=== PATIENT | male | born 1950 | race Caucasian/White ===

== ENCOUNTER 2019-02-17 10:58 | Inpatient (IN) | payer MEDICARE, OTHER ==
[2019-02-17 11:56] LABS: ADD MAN DIFF? NO
[2019-02-17 11:58] LABS: WHITE BLOOD COUNT 31.6 10^3/ul (4.8-10.8)
[2019-02-17 11:58] LABS: ABNORMAL IP MESSAGE 1; BASOPHIL # 0.2 10^3/ul (0.0-0.1); BASOPHILS % 0.5 % (0.0-2.0); HEMATOCRIT 51.1 % (42.0-52.0); HEMOGLOBIN 17.1 g/dl (14.0-18.0); LYMPHOCYTES # 0.2 10^3/ul (0.8-2.9); LYMPHOCYTES % 0.6 % (15.0-51.0); MEAN CORPUSCULAR HEMOGLOBIN 30.3 pg (29.0-33.0); MEAN CORPUSCULAR HGB CONC 33.5 g/dl (32.0-37.0); MEAN CORPUSCULAR VOLUME 90.4 fl (82.0-101.0); MEAN PLATELET VOLUME 8.1 fl (7.4-10.4); MONOCYTES % 3.3 % (0.0-11.0); NEUTROPHIL # 29.9 10^3/ul (1.6-7.5); NEUTROPHILS % 94.7 % (39.0-77.0); PLATELET COUNT 223 10^3/UL (140-415); POSITIVE DIFF @See below; RED BLOOD COUNT 5.65 10^6/ul (4.70-6.10); RED CELL DISTRIBUTION WIDTH 13.3 % (11.5-14.5)
[2019-02-17] MEDS: SOD CHLORIDE 0.9% 1,000 ML IV ×2 (12:15→17:40)
[2019-02-17 12:23] LABS: ANION GAP 18 (5-13); BLOOD UREA NITROGEN 45 mg/dl (7-20); CALCIUM 9.5 mg/dl (8.4-10.2); CARBON DIOXIDE 18 mmol/L (21-31); CHLORIDE 106 mmol/L (97-110); CREATININE 2.85 mg/dl (0.61-1.24); Estimated GFR 22 mL/min (>60); GLUCOSE 167 mg/dl (70-220); POTASSIUM 4.2 mmol/L (3.5-5.1); SODIUM 142 mmol/L (135-144)
[2019-02-17] MEDS: CEFEPIME 1GM/50 ML (PMX) 50 ML IVPB (13:24)
[2019-02-17] MEDS: SODIUM CHLORIDE 0.9% 1L BAG IV* (13:25)
[2019-02-17] MEDS ORDERED: ACETAMINOPHEN 325 MG TAB PO ×2 (13:30→17:00)
[2019-02-17] MEDS ORDERED: ONDANSETRON 4 MG INJ IV (13:30)
[2019-02-17 13:42] LABS: ADD UMIC YES; UR ASCORBIC ACID NEGATIVE (NEGATIVE); UR BILIRUBIN (Dip) NEGATIVE (NEGATIVE); UR BLOOD (Dip) 2+ mg/dL (NEGATIVE); UR CLARITY CLOUDY (CLEAR); UR COLOR AMBER (YELLOW); UR GLUCOSE (Dip) 1+ mg/dL (NEGATIVE); UR KETONES (Dip) 1+ mg/dL (NEGATIVE); UR LEUKOCYTE ESTERASE (Dip) NEGATIVE Leu/ul (NEGATIVE); UR NITRITE (Dip) POSITIVE (NEGATIVE); UR TOTAL PROTEIN (Dip) 3+ mg/dl (NEGATIVE); UR UROBILINOGEN (Dip) NEGATIVE (NEGATIVE)
[2019-02-17 13:47] LABS: UR MUCUS MODERATE /HPF (NONE SEEN); UR SQUAMOUS EPITHELIAL CELL FEW /HPF (FEW); URINE RBCS >200 /HPF (0)
[2019-02-17 13:58] LABS: INR 1.11; PROTIME 14.4 Sec (11.9-14.9); PT RATIO 1.1
[2019-02-17 15:35] LABS: CREATINE KINASE 51 IU/L (23-200)
[2019-02-17 15:58] LABS: LACTIC ACID 4.3 mmol/L (0.5-2.0)
[2019-02-17] MEDS ORDERED: traMADol 50 MG TAB PO (17:00)
[2019-02-17 18:22] LABS: LACTIC ACID 2.2 mmol/L (0.5-2.0)
[2019-02-17] MEDS: TAMSULOSIN (SR) 0.4 MG CAP PO (20:13)
[2019-02-17] MEDS: BETHANECHOL 25 MG TAB PO (20:13)
[2019-02-17] MEDS: DOCUSATE SODIUM 100 MG CAP PO (20:13)
[2019-02-17] MEDS: METOPROLOL 25 MG TAB PO (20:14)
[2019-02-17] MEDS: TERAZOSIN 5 MG CAP PO (20:14)
[2019-02-18] MEDS: LEVALBUTEROL (NEB) 0.63 MG/3 ML AMP HHN ×3 (00:39→15:03)
[2019-02-18] MEDS: SOD CHLORIDE 0.9% 1,000 ML IV ×4 (03:00→23:00)
[2019-02-18 05:12] LABS: ADD MAN DIFF? NO
[2019-02-18 05:25] LABS: LACTIC ACID 1.2 mmol/L (0.5-2.0)
[2019-02-18 05:26] LABS: ANION GAP 10 (5-13); BLOOD UREA NITROGEN 50 mg/dl (7-20); CALCIUM 8.1 mg/dl (8.4-10.2); CARBON DIOXIDE 20 mmol/L (21-31); CHLORIDE 111 mmol/L (97-110); CREATININE 2.12 mg/dl (0.61-1.24); Estimated GFR 31 mL/min (>60); GLUCOSE 134 mg/dl (70-220); POTASSIUM 4.5 mmol/L (3.5-5.1); SODIUM 141 mmol/L (135-144)
[2019-02-18 05:46] LABS: ABNORMAL IP MESSAGE 1; BASOPHIL # 0.1 10^3/ul (0.0-0.1); BASOPHILS % 0.3 % (0.0-2.0); EOSINOPHILS # 0.2 10^3/ul (0.0-0.5); EOSINOPHILS % 0.7 % (0.0-7.0); HEMATOCRIT 38.7 % (42.0-52.0); HEMOGLOBIN 12.7 g/dl (14.0-18.0); LYMPHOCYTES # 0.5 10^3/ul (0.8-2.9); LYMPHOCYTES % 2.3 % (15.0-51.0); MEAN CORPUSCULAR HEMOGLOBIN 29.9 pg (29.0-33.0); MEAN CORPUSCULAR HGB CONC 32.8 g/dl (32.0-37.0); MEAN CORPUSCULAR VOLUME 91.1 fl (82.0-101.0); MEAN PLATELET VOLUME 8.8 fl (7.4-10.4); MONOCYTE # 1.1 10^3/ul (0.3-0.9); MONOCYTES % 5.3 % (0.0-11.0); NEUTROPHIL # 19.1 10^3/ul (1.6-7.5); NEUTROPHILS % 89.8 % (39.0-77.0); PLATELET COUNT 158 10^3/UL (140-415); POSITIVE DIFF @See below; RED BLOOD COUNT 4.25 10^6/ul (4.70-6.10); RED CELL DISTRIBUTION WIDTH 13.7 % (11.5-14.5)
[2019-02-18 05:46] LABS: WHITE BLOOD COUNT 21.3 10^3/ul (4.8-10.8)
[2019-02-18] MEDS: METOPROLOL 25 MG TAB PO ×2 (09:00→21:01)
[2019-02-18] MEDS: CEFEPIME 1GM/50 ML (PMX) 50 ML IVPB (12:34)
[2019-02-18] MEDS: GUAIFENESIN/DM 5ML CUP PO ×3 (12:40→23:00)
[2019-02-18] MEDS: TERAZOSIN 5 MG CAP PO (21:01)
[2019-02-18] MEDS: DOCUSATE SODIUM 100 MG CAP PO (21:01)
[2019-02-19] MEDS: SOD CHLORIDE 0.9% 1,000 ML IV ×2 (03:08→13:30)
[2019-02-19] MEDS: GUAIFENESIN/DM 5ML CUP PO ×2 (06:29→10:48)
[2019-02-19] MEDS: METOPROLOL 25 MG TAB PO ×2 (08:50→21:58)
[2019-02-19] MEDS: LEVALBUTEROL (NEB) 0.63 MG/3 ML AMP HHN ×3 (08:56→15:01)
[2019-02-19] MEDS: BISACODYL (EC) 5 MG TAB PO (13:51)
[2019-02-19] MEDS: CEFEPIME 1GM/50 ML (PMX) 50 ML IVPB (13:51)
[2019-02-19] MEDS: HYDROCODONE/HOMATROPINE 5ML CUP PO (15:53)
[2019-02-19 19:07] LABS: ADD UMIC YES; UR ASCORBIC ACID NEGATIVE (NEGATIVE); UR BACTERIA FEW /HPF (NONE SEEN); UR BILIRUBIN (Dip) NEGATIVE (NEGATIVE); UR BLOOD (Dip) 3+ mg/dL (NEGATIVE); UR CLARITY TURBID (CLEAR); UR COLOR YELLOW (YELLOW); UR GLUCOSE (Dip) NEGATIVE (NEGATIVE); UR KETONES (Dip) NEGATIVE (NEGATIVE); UR LEUKOCYTE ESTERASE (Dip) 3+ Leu/ul (NEGATIVE); UR MUCUS FEW /HPF (NONE SEEN); UR NITRITE (Dip) NEGATIVE (NEGATIVE); UR RBC 47 /HPF (0-5); UR SPECIFIC GRAVITY (Dip) 1.012 (1.003-1.030); UR TOTAL PROTEIN (Dip) 1+ mg/dl (NEGATIVE); UR UROBILINOGEN (Dip) NEGATIVE (NEGATIVE); UR WBC > 182 /HPF (0-5)
[2019-02-19 19:19] LABS: SODIUM,URINE RANDOM 140 mmol/L (30-90)
[2019-02-19] MEDS: DOXYCYCLINE 100 MG TAB PO (21:56)
[2019-02-19] MEDS: TERAZOSIN 5 MG CAP PO (21:57)
[2019-02-19] MEDS: DOCUSATE SODIUM 100 MG CAP PO (21:57)
[2019-02-20] MEDS: SOD CHLORIDE 0.9% 1,000 ML IV ×2 (00:12→09:20)
[2019-02-20] MEDS: HYDROCODONE/HOMATROPINE 5ML CUP PO ×3 (00:46→16:24)
[2019-02-20 05:18] LABS: ADD MAN DIFF? NO
[2019-02-20 05:22] LABS: WHITE BLOOD COUNT 7.7 10^3/ul (4.8-10.8)
[2019-02-20 05:22] LABS: BASOPHIL # 0.1 10^3/ul (0.0-0.1); BASOPHILS % 0.6 % (0.0-2.0); EOSINOPHILS # 0.7 10^3/ul (0.0-0.5); EOSINOPHILS % 9.2 % (0.0-7.0); HEMATOCRIT 35.4 % (42.0-52.0); HEMOGLOBIN 11.6 g/dl (14.0-18.0); LYMPHOCYTES # 0.6 10^3/ul (0.8-2.9); MEAN CORPUSCULAR HEMOGLOBIN 30.2 pg (29.0-33.0); MEAN CORPUSCULAR HGB CONC 32.8 g/dl (32.0-37.0); MEAN CORPUSCULAR VOLUME 92.2 fl (82.0-101.0); MEAN PLATELET VOLUME 8.5 fl (7.4-10.4); MONOCYTES % 12.4 % (0.0-11.0); NEUTROPHIL # 5.4 10^3/ul (1.6-7.5); NEUTROPHILS % 69.5 % (39.0-77.0); PLATELET COUNT 177 10^3/UL (140-415); RED BLOOD COUNT 3.84 10^6/ul (4.70-6.10); RED CELL DISTRIBUTION WIDTH 13.7 % (11.5-14.5)
[2019-02-20 05:27] LABS: ANION GAP 5 (5-13); BLOOD UREA NITROGEN 20 mg/dl (7-20); CALCIUM 7.8 mg/dl (8.4-10.2); CARBON DIOXIDE 23 mmol/L (21-31); CHLORIDE 114 mmol/L (97-110); CREATININE 1.22 mg/dl (0.61-1.24); Estimated GFR 59 mL/min (>60); GLUCOSE 107 mg/dl (70-220); POTASSIUM 4.3 mmol/L (3.5-5.1); SODIUM 142 mmol/L (135-144)
[2019-02-20] MEDS: LEVALBUTEROL (NEB) 0.63 MG/3 ML AMP HHN ×3 (07:59→16:15)
[2019-02-20] MEDS: DOXYCYCLINE 100 MG TAB PO ×2 (09:10→20:34)
[2019-02-20] MEDS: METOPROLOL 25 MG TAB PO ×2 (09:11→20:34)
[2019-02-20] MEDS: CEFEPIME 1GM/50 ML (PMX) 50 ML IVPB (12:14)
[2019-02-20] MEDS: BISACODYL (EC) 5 MG TAB PO (18:51)
[2019-02-20] MEDS: DOCUSATE SODIUM 100 MG CAP PO (20:33)
[2019-02-20] MEDS: TERAZOSIN 5 MG CAP PO (20:34)
[2019-02-21] MEDS: LEVALBUTEROL (NEB) 0.63 MG/3 ML AMP HHN ×3 (00:41→16:20)
[2019-02-21 05:18] LABS: ADD MAN DIFF? NO
[2019-02-21 05:24] LABS: WHITE BLOOD COUNT 6.9 10^3/ul (4.8-10.8)
[2019-02-21 05:24] LABS: BASOPHIL # 0.1 10^3/ul (0.0-0.1); EOSINOPHILS # 0.8 10^3/ul (0.0-0.5); LYMPHOCYTES # 0.8 10^3/ul (0.8-2.9); MEAN CORPUSCULAR HEMOGLOBIN 29.8 pg (29.0-33.0); MEAN CORPUSCULAR HGB CONC 33.3 g/dl (32.0-37.0); MEAN CORPUSCULAR VOLUME 89.3 fl (82.0-101.0); MEAN PLATELET VOLUME 8.3 fl (7.4-10.4); MONOCYTE # 1.1 10^3/ul (0.3-0.9); MONOCYTES % 16.4 % (0.0-11.0); NEUTROPHIL # 4.2 10^3/ul (1.6-7.5); PLATELET COUNT 206 10^3/UL (140-415); RED BLOOD COUNT 4.03 10^6/ul (4.70-6.10); RED CELL DISTRIBUTION WIDTH 13.7 % (11.5-14.5)
[2019-02-21 05:38] LABS: ANION GAP 10 (5-13); BLOOD UREA NITROGEN 16 mg/dl (7-20); CALCIUM 8.8 mg/dl (8.4-10.2); CARBON DIOXIDE 25 mmol/L (21-31); CHLORIDE 108 mmol/L (97-110); CREATININE 1.22 mg/dl (0.61-1.24); Estimated GFR 59 mL/min (>60); GLUCOSE 117 mg/dl (70-220); MAGNESIUM 2.1 mg/dl (1.7-2.5); PHOSPHORUS 4.1 mg/dl (2.5-4.9); POTASSIUM 4.1 mmol/L (3.5-5.1); SODIUM 143 mmol/L (135-144)
[2019-02-21] MEDS: METOPROLOL 25 MG TAB PO ×2 (09:05→20:29)
[2019-02-21] MEDS: DOXYCYCLINE 100 MG TAB PO ×2 (09:05→20:28)
[2019-02-21] MEDS: CEFEPIME 1GM/50 ML (PMX) 50 ML IVPB (13:11)
[2019-02-21] MEDS: BISACODYL (EC) 5 MG TAB PO (13:11)
[2019-02-21] MEDS: PROMETHAZINE/CODEINE 5ML CUP PO ×2 (13:12→19:33)
[2019-02-21 15:02] LABS: CREATININE, RANDOM URINE 67 mg/dL (20-320); MICROALBUMIN 6.5 mg/dL; MICROALBUMIN/CREATININE RATIO 97 (<30)
[2019-02-21] MEDS: TERAZOSIN 5 MG CAP PO (20:29)
[2019-02-21] MEDS: DOCUSATE SODIUM 100 MG CAP PO (20:29)
[2019-02-22] MEDS: LEVALBUTEROL (NEB) 0.63 MG/3 ML AMP HHN ×3 (01:06→17:21)
[2019-02-22] MEDS: PROMETHAZINE/CODEINE 5ML CUP PO (02:25)
[2019-02-22] MEDS: DOXYCYCLINE 100 MG TAB PO ×2 (08:38→21:07)
[2019-02-22] MEDS: METOPROLOL 25 MG TAB PO ×2 (08:41→21:08)
[2019-02-22] MEDS: CEFEPIME 1GM/50 ML (PMX) 50 ML IVPB (12:36)
[2019-02-22] MEDS: DOCUSATE SODIUM 100 MG CAP PO (21:07)
[2019-02-22] MEDS: TERAZOSIN 5 MG CAP PO (21:08)
[2019-02-22] MEDS: BISACODYL (EC) 5 MG TAB PO (21:09)
[2019-02-23] MEDS: LEVALBUTEROL (NEB) 0.63 MG/3 ML AMP HHN ×3 (00:35→16:27)
[2019-02-23] MEDS ORDERED: ALENDRONATE 70 MG TAB PO ×2 (07:00→07:20)
[2019-02-23] MEDS: METOPROLOL 25 MG TAB PO ×2 (09:44→20:59)
[2019-02-23] MEDS: DOXYCYCLINE 100 MG TAB PO ×2 (09:44→20:57)
[2019-02-23] MEDS: CEFEPIME 1GM/50 ML (PMX) 50 ML IVPB (14:14)
[2019-02-23] MEDS: BISACODYL (EC) 5 MG TAB PO (20:57)
[2019-02-23] MEDS: DOCUSATE SODIUM 100 MG CAP PO (20:58)
[2019-02-23] MEDS: TERAZOSIN 5 MG CAP PO (20:58)
[2019-02-24] MEDS: LEVALBUTEROL (NEB) 0.63 MG/3 ML AMP HHN ×3 (00:32→16:04)
[2019-02-24] MEDS: DOXYCYCLINE 100 MG TAB PO ×2 (09:46→21:03)
[2019-02-24] MEDS: METOPROLOL 25 MG TAB PO ×2 (09:46→21:00)
[2019-02-24] MEDS: CEFEPIME 1GM/50 ML (PMX) 50 ML IVPB (12:53)
[2019-02-24] MEDS: BISACODYL 10 MG SUPP PR (13:54)
[2019-02-24] MEDS: DOCUSATE SODIUM 100 MG CAP PO (21:04)
[2019-02-24] MEDS: TERAZOSIN 5 MG CAP PO (21:04)
[2019-02-25] MEDS: LEVALBUTEROL (NEB) 0.63 MG/3 ML AMP HHN ×3 (01:03→15:08)
[2019-02-25 06:10] LABS: ANION GAP 12 (5-13); BLOOD UREA NITROGEN 31 mg/dl (7-20); CALCIUM 9.2 mg/dl (8.4-10.2); CARBON DIOXIDE 24 mmol/L (21-31); CHLORIDE 104 mmol/L (97-110); CREATININE 1.31 mg/dl (0.61-1.24); Estimated GFR 55 mL/min (>60); GLUCOSE 127 mg/dl (70-220); MAGNESIUM 2.1 mg/dl (1.7-2.5); PHOSPHORUS 3.9 mg/dl (2.5-4.9); POTASSIUM 4.3 mmol/L (3.5-5.1); SODIUM 140 mmol/L (135-144)
[2019-02-25] MEDS: DOXYCYCLINE 100 MG TAB PO ×2 (09:04→22:08)
[2019-02-25] MEDS: METOPROLOL 25 MG TAB PO ×2 (09:05→22:08)
[2019-02-25] MEDS: PROMETHAZINE/CODEINE 5ML CUP PO (09:08)
[2019-02-25] MEDS: CEFEPIME 1GM/50 ML (PMX) 50 ML IVPB (13:43)
[2019-02-25] MEDS: TERAZOSIN 5 MG CAP PO (22:07)
[2019-02-25] MEDS: DOCUSATE SODIUM 100 MG CAP PO (22:07)
[2019-02-26] MEDS: LEVALBUTEROL (NEB) 0.63 MG/3 ML AMP HHN ×4 (00:09→23:26)
[2019-02-26 04:56] LABS: ADD MAN DIFF? NO
[2019-02-26 05:01] LABS: WHITE BLOOD COUNT 8.7 10^3/ul (4.8-10.8)
[2019-02-26 05:01] LABS: BASOPHIL # 0.1 10^3/ul (0.0-0.1); BASOPHILS % 1.4 % (0.0-2.0); EOSINOPHILS # 0.7 10^3/ul (0.0-0.5); EOSINOPHILS % 7.7 % (0.0-7.0); HEMATOCRIT 41.4 % (42.0-52.0); HEMOGLOBIN 13.8 g/dl (14.0-18.0); LYMPHOCYTES # 1.5 10^3/ul (0.8-2.9); LYMPHOCYTES % 17.4 % (15.0-51.0); MEAN CORPUSCULAR HEMOGLOBIN 29.9 pg (29.0-33.0); MEAN CORPUSCULAR HGB CONC 33.3 g/dl (32.0-37.0); MEAN CORPUSCULAR VOLUME 89.6 fl (82.0-101.0); MONOCYTE # 0.9 10^3/ul (0.3-0.9); MONOCYTES % 9.8 % (0.0-11.0); NEUTROPHIL # 5.4 10^3/ul (1.6-7.5); NEUTROPHILS % 61.4 % (39.0-77.0); PLATELET COUNT 312 10^3/UL (140-415); RED BLOOD COUNT 4.62 10^6/ul (4.70-6.10); RED CELL DISTRIBUTION WIDTH 13.4 % (11.5-14.5)
[2019-02-26 05:32] LABS: ANION GAP 11 (5-13); BLOOD UREA NITROGEN 30 mg/dl (7-20); CALCIUM 9.1 mg/dl (8.4-10.2); CARBON DIOXIDE 26 mmol/L (21-31); CHLORIDE 103 mmol/L (97-110); CREATININE 1.45 mg/dl (0.61-1.24); Estimated GFR 49 mL/min (>60); GLUCOSE 116 mg/dl (70-220); MAGNESIUM 2.2 mg/dl (1.7-2.5); POTASSIUM 4.6 mmol/L (3.5-5.1); SODIUM 140 mmol/L (135-144)
[2019-02-26] MEDS: METOPROLOL 25 MG TAB PO ×2 (08:08→20:44)
[2019-02-26] MEDS: DOXYCYCLINE 100 MG TAB PO (08:08)
[2019-02-26] MEDS: POLYETHYLENE GLYCOL 17 GM PACKET PO (12:54)
[2019-02-26] MEDS: TERAZOSIN 5 MG CAP PO (20:44)
[2019-02-26] MEDS: DOCUSATE SODIUM 100 MG CAP PO (20:44)
[2019-02-27 05:12] LABS: ADD MAN DIFF? NO
[2019-02-27 05:13] LABS: WHITE BLOOD COUNT 9.3 10^3/ul (4.8-10.8)
[2019-02-27 05:13] LABS: BASOPHIL # 0.1 10^3/ul (0.0-0.1); BASOPHILS % 1.1 % (0.0-2.0); EOSINOPHILS # 0.7 10^3/ul (0.0-0.5); EOSINOPHILS % 7.5 % (0.0-7.0); HEMATOCRIT 41.4 % (42.0-52.0); HEMOGLOBIN 13.8 g/dl (14.0-18.0); LYMPHOCYTES # 1.6 10^3/ul (0.8-2.9); LYMPHOCYTES % 16.8 % (15.0-51.0); MEAN CORPUSCULAR HGB CONC 33.3 g/dl (32.0-37.0); MONOCYTE # 0.9 10^3/ul (0.3-0.9); MONOCYTES % 9.6 % (0.0-11.0); NEUTROPHIL # 5.8 10^3/ul (1.6-7.5); NEUTROPHILS % 63.1 % (39.0-77.0); PLATELET COUNT 324 10^3/UL (140-415); RED CELL DISTRIBUTION WIDTH 13.3 % (11.5-14.5)
[2019-02-27 05:32] LABS: ANION GAP 10 (5-13); BLOOD UREA NITROGEN 29 mg/dl (7-20); CALCIUM 8.9 mg/dl (8.4-10.2); CARBON DIOXIDE 27 mmol/L (21-31); CHLORIDE 104 mmol/L (97-110); CREATININE 1.49 mg/dl (0.61-1.24); Estimated GFR 47 mL/min (>60); GLUCOSE 119 mg/dl (70-220); MAGNESIUM 2.2 mg/dl (1.7-2.5); PHOSPHORUS 4.1 mg/dl (2.5-4.9); SODIUM 141 mmol/L (135-144)
[2019-02-27] MEDS: LEVALBUTEROL (NEB) 0.63 MG/3 ML AMP HHN (08:04)
[2019-02-27] MEDS: POLYETHYLENE GLYCOL 17 GM PACKET PO (08:15)
[2019-02-27] MEDS: METOPROLOL 25 MG TAB PO (08:16)
== END 2019-02-27 15:16 | DRG 871 ==
LOC: MS1 02-18 07:14 → E/R 10:58 → MS1 13:30
DX: A41.9 Sepsis, unspecified organism (principal); J18.9 Pneumonia, unspecified organism; N17.9 Acute kidney failure, unspecified; E87.2 Acidosis; N39.0 Urinary tract infection, site not specified; R65.20 Severe sepsis without septic shock; G35 Multiple sclerosis; I12.9 Hypertensive chronic kidney disease with stage 1 through stage 4 chronic kidney disease, or unspecified chronic kidney disease; N18.3 Chronic kidney disease, stage 3 (moderate); N40.0 Benign prostatic hyperplasia without lower urinary tract symptoms; M81.0 Age-related osteoporosis without current pathological fracture; N31.9 Neuromuscular dysfunction of bladder, unspecified; Z96.0 Presence of urogenital implants; R31.0 Gross hematuria; Z99.3 Dependence on wheelchair; Z74.01 Bed confinement status; K59.00 Constipation, unspecified; B96.1 Klebsiella pneumoniae [K. pneumoniae] as the cause of diseases classified elsewhere; B96.4 Proteus (mirabilis) (morganii) as the cause of diseases classified elsewhere; B95.61 Methicillin susceptible Staphylococcus aureus infection as the cause of diseases classified elsewhere
CPT/HCPCS: 36415; 71045; 74176; 76775; 80048; 81001; 81003; 82043; 82550; 83605; 83735; 84100; 84155; 84300; 85025; 85610; 85730; 87040-91; 87070; 87081; 87086; 93005; 94640; 94664; 96374; 97161; 97530; 99285-25